=== PATIENT | female | born 1995 | race Caucasian/White ===

== ENCOUNTER 2021-11-13 16:20 | Emergency (ER) | payer MEDICAID ==
[~2021-11-13] VITALS: Ht 177.8 cm; Wt 131.0 kg
[2021-11-13 17:00] LABS: BASOPHILS % 0.7 % (0.0-2.0); EOSINOPHILS % 1.7 % (0.0-5.0); HEMATOCRIT. 35.4 % (36.0-48.0); HEMOGLOBIN. 12.5 g/dL (12.0-16.0); LYMPHOCYTES % 35.3 % (20.0-50.0); MEAN CORPUSCULAR HEMOGLOBIN 31.7 pg (28.0-32.0); MEAN PLATELET VOLUME 8.6 fl (7.4-10.4); MONOCYTES % 5.1 % (2.0-8.0); NEUTROPHILS % 57.2 % (40.0-76.0); PLATELET 278 x1000/uL (130-400); RED BLOOD CELL COUNT 3.93 mill/uL (4.2-5.4); RED CELL DISTRIBUTION WIDTH 13.3 % (11.6-14.6)
[2021-11-13 17:06] LABS: CHLORIDE 109 mEq/L (98-107)
[2021-11-13 17:13] LABS: HCG SCREEN NEGATIVE
[2021-11-13 18:01] VITALS: BP 158/86
== END 2021-11-13 20:00 | disposition home or self-care (01) ==
LOC: ER 16:20
DX: N93.9 Abnormal uterine and vaginal bleeding, unspecified (principal); R93.89 Abnormal findings on diagnostic imaging of other specified body structures
CPT/HCPCS: 36415; 76830; 76856; 80053; 84703; 85025; 86900; 99284